=== PATIENT | female | born 1985 | race Two or more races ===

== ENCOUNTER → 2017-10-09 | Emergency (ER) | payer OTHER ==
[~2017-10-09] VITALS: Ht 157.5 cm; Wt 63.0 kg
[~2017-10-09] MED LIST: PNV-FERROUS FU1 EACH
== END | disposition home or self-care (01) ==
LOC: ER 22:45
DX: K52.89 Other specified noninfective gastroenteritis and colitis (principal)

== ENCOUNTER 2018-01-05 00:31 | Inpatient (IN) | payer OTHER ==
[~2018-01-05] VITALS: Ht 157.5 cm; Wt 0.9 kg
[2018-01-07] MEDS ORDERED: KEFLEX500 MG PO (09:47)
== END 2018-01-07 12:51 | disposition home or self-care (01) | DRG 775 ==
LOC: OBS/DEL 00:31 → OB/GYN 02:04 → LDR 02:04 → OB/GYN 15:19
PROC: 10E0XZZ Delivery of Products of Conception, External Approach (ICD-10-PCS; principal; 2018-01-05)
PROC: BY4CZZZ Ultrasonography of Second Trimester, Single Fetus (ICD-10-PCS; 2018-01-05)
PROC: 4A1HXCZ Monitoring of Products of Conception, Cardiac Rate, External Approach (ICD-10-PCS; 2018-01-05)
PROC: 4A033R1 Measurement of Arterial Saturation, Peripheral, Percutaneous Approach (ICD-10-PCS; 2018-01-05)
DX: O41.1230 Chorioamnionitis, third trimester, not applicable or unspecified (principal); O60.13X0 Preterm labor second trimester with preterm delivery third trimester, not applicable or unspecified; O23.42 Unspecified infection of urinary tract in pregnancy, second trimester; Z3A.26 26 weeks gestation of pregnancy; Z37.0 Single live birth

== ENCOUNTER 2021-04-03 06:22 | Day surgery (SDC) | payer OTHER ==
[~2021-04-03 06:22] MED LIST changes: +KEFLEX500 MG PO
== END 2021-04-03 18:25 | disposition home or self-care (01) ==
LOC: CIR.AMB 06:22
PROVIDERS: ATTEND Student in an Organized Health Care Education/Training Program
DX: Z30.2 Encounter for sterilization (principal); Z20.822 Contact with and (suspected) exposure to COVID-19

== ENCOUNTER 2022-01-04 23:24 | Emergency (ER) | payer OTHER ==
[~2022-01-04] VITALS: Ht 157.5 cm; Wt 63.0 kg
[2022-01-05] MEDS ORDERED: NORFLEX100MG PO (02:58)
[2022-01-05] MEDS ORDERED: KETO10TA2 PO (02:58)
== END 2022-01-05 03:12 | disposition home or self-care (01) ==
LOC: ER 23:24 → EDBD 23:27 → ER 01-05 03:12
DX: R07.89 Other chest pain (principal)